=== PATIENT | male | born 1950 | race Hispanic/Latino ===

== ENCOUNTER → 2024-10-01 | Outpatient (CLI) | payer OTHER ==
--- NOTE | 2024-10-01 11:21 | HMCIMG ---
US ARTERIAL BILAT UPP EXT DUPL HISTORY: Bilateral upper extremity pain, steal syndrome COMPARISON: None TECHNIQUE: Bilateral upper extremity arterial Doppler ultrasound study was performed. FINDINGS: Normal triphasic and biphasic arterial waveforms are noted in the proximal common carotid, subclavian, axillary, brachial, radial and ulna arteries bilaterally. On the right, the peak systolic velocity of the subclavian artery is 39 cm/s, the axillary artery is 68 cm/s, the brachial artery is 68 cm/s, the radial artery is 78 cm/s, and the ulnar artery is 38 cm/s. On the LEFT, the peak systolic velocity of the subclavian artery is 64 cm/s, the axillary artery is 66 cm/s, brachial artery is 63 cm/s, the radial artery is 80 cm/s, and the ulnar artery is 39 cm/s. IMPRESSION: 1. Atherosclerotic disease. 2. Otherwise normal triphasic and biphasic arterial waveforms noted of the upper extremity artery system.
== END | disposition home or self-care (01) ==
LOC: RAH 09:32
PROVIDERS: ATTEND Internal Medicine
DX: G45.8 Other transient cerebral ischemic attacks and related syndromes (principal); I70.0 Atherosclerosis of aorta; M79.641 Pain in right hand; M79.642 Pain in left hand
CPT/HCPCS: 93930